=== PATIENT | male | born 1995 | race Caucasian/White ===

== ENCOUNTER → 2023-08-14 | Outpatient (CLI) | payer MEDICAID ==
[~2023-08-14] MED LIST: SERT50TA
== END | disposition home or self-care (01) ==
LOC: XYW 15:49
PROVIDERS: ATTEND Student in an Organized Health Care Education/Training Program
DX: R06.02 Shortness of breath (principal)
CPT/HCPCS: 93306

== ENCOUNTER 2023-09-05 16:08 | Emergency (ER) | payer MEDICAID ==
[~2023-09-05] VITALS: Ht 182.9 cm; Wt 125.3 kg
[2023-09-05] MEDS ORDERED: IBUP-1456 PO (19:47)
[2023-09-05] MEDS ORDERED: CEPH500C PO (19:47)
[2023-09-05] MEDS: TETANUS-DIPTH-ACEL PERTUSSIS 0.5ML SYR Tdap IM ONE (20:16)
[2023-09-05 20:31] VITALS: BP 149/93; PULSE 95; RESP 20; TEMP 98.5; O2SAT 97
== END 2023-09-05 20:52 | disposition home or self-care (01) ==
LOC: ER 16:08
DX: S61.412A Laceration without foreign body of left hand, initial encounter (principal); I10 Essential (primary) hypertension; E78.5 Hyperlipidemia, unspecified; Z79.899 Other long term (current) drug therapy; W26.0XXA Contact with knife, initial encounter; Y93.89 Activity, other specified; Y92.89 Other specified places as the place of occurrence of the external cause; Y99.8 Other external cause status
CPT/HCPCS: 12002; 90471; 90715